=== PATIENT | female | born 1975 | race Caucasian/White ===

== ENCOUNTER 2022-05-08 22:59 | Emergency (ER) | payer OTHER ==
[~2022-05-08] VITALS: Ht 167.6 cm; Wt 68.0 kg
[2022-05-08] MEDS ORDERED: ASPIRIN CHILDRE81 MG PO (23:07)
[2022-05-08] MEDS ORDERED: KLONOPIN0.5 MG PO (23:08)
[2022-05-08] MEDS ORDERED: CEPHALEXIN500 M1 PO (23:36)
== END 2022-05-08 23:45 | disposition home or self-care (01) ==
LOC: ED 22:59
DX: L03.115 Cellulitis of right lower limb (principal); M67.461 Ganglion, right knee; Z88.2 Allergy status to sulfonamides; Z91.040 Latex allergy status; Z79.82 Long term (current) use of aspirin; Z98.890 Other specified postprocedural states; Z98.51 Tubal ligation status

== ENCOUNTER 2022-05-18 11:07 | Emergency (ER) | payer OTHER ==
[~2022-05-18] VITALS: Ht 165.1 cm; Wt 68.0 kg
[~2022-05-18 11:07] MED LIST: ASPIRIN CHILDRE81 MG PO; CEPHALEXIN500 M1 PO; KLONOPIN0.5 MG PO
[2022-05-18 12:05] LABS: BASO % 0.6 % (0.0-1.0); EOS % 0.6 % (1.0-4.0); HEMATOCRIT 45.4 % (37.0-47.0); LYMPH # 0.4 10*3/uL (1.3-4.4); LYMPH % 6.6 % (27.0-41.0); MEAN CELL VOLUME 95.8 fl (81.0-99.0); MEAN CORPUSCULAR HGB 32.5 pg (27.0-31.0); MEAN CORPUSCULAR HGB CONC 33.9 g/dl (33.0-37.0); MEAN PLATELET VOLUME 9.6 fl (9.6-12.3); MONO # 0.6 10*3/uL (0.1-1.0); MONO % 8.6 % (3.0-9.0); NEUT # 5.4 10*3/uL (2.3-7.9); NEUT % 82.8 % (47.0-73.0); PLATELET COUNT AUTOMATED 192 10*3/uL (130-400); RED BLOOD COUNT 4.74 10*6/uL (4.10-5.10); RED CELL DISTRI WIDTH 12.4 % (0-14.5); WHITE BLOOD COUNT 6.5 10*3/uL (4.8-10.8)
[2022-05-18 12:16] LABS: ACT PARTIAL THROMBO TIME 32.4 SECONDS (20.0-32.1)
[2022-05-18 12:22] LABS: ALKALINE PHOSPHATASE 47 U/L (45-117); BUN 12 mg/dl (7-24); CHLORIDE 108 mmol/L (98-107); CREATININE 0.65 mg/dL (0.55-1.02); LIPASE 99 U/L (73-393); POTASSIUM 3.8 mmol/L (3.5-5.1); SGOT/AST 10 IU/L (3-35); SGPT/ALT 15 U/L (12-78); SODIUM 136 mmol/L (136-145); TOTAL PROTEIN 6.6 gm/dL (6.4-8.2)
[2022-05-18] MEDS ORDERED: PREDNISONE20 M1 PO (14:17)
[2022-05-18] MEDS ORDERED: PROVENTIL HFA6.7 GM INH (14:17)
== END 2022-05-18 14:22 | disposition home or self-care (01) ==
LOC: ED 11:07
PROVIDERS: Physician Assistant
DX: U07.1 COVID-19 (principal); Z88.2 Allergy status to sulfonamides; Z79.82 Long term (current) use of aspirin; Z98.890 Other specified postprocedural states